=== PATIENT | male | born 1945 | race Caucasian/White ===

== ENCOUNTER 2017-08-13 05:12 | Emergency (ER) | payer MEDICARE, SELFPAY ==
[2017-08-13 05:18] VITALS: BP 136/76; PULSE 105; RESP 18; TEMP 37.1; O2SAT 96
--- NOTE | 2017-08-13 05:31 | DI.RAD.S_ITS ---
PROCEDURE: XR CHEST 1V INDICATIONS: chest pain TECHNIQUE: One view of the chest was acquired. COMPARISON: [facility], , CHEST 2 VIEW, 01/04/2017, 15:57. FINDINGS: Surgical changes and devices: None. Lungs and pleura: No pleural effusions or pneumothorax. Mild patchy bilateral perihilar and right basilar opacity. Mediastinum: Mediastinal contours appear normal. Heart size is normal. Bones and chest wall: No suspicious bony lesions. Overlying soft tissues appear unremarkable. IMPRESSION: Bilateral pneumonia. Dictated by: Tiffani Rich M.D. on 08/13/2017 at 9:28 Approved by: Tiffani Rich M.D. on 08/13/2017 at 9:29
[2017-08-13] MEDS: HALOPERIDOL 5 MG/ML VIAL 2 MG IV (05:41)
[2017-08-13] MEDS: LORazepam 0.5 MG TABLET PO (05:41)
[2017-08-13 05:50] LABS: Add Manual Diff / Slide Review SLIDE REVIEW; Basophils Percent Auto 1.3 % (0-2); Eosinophils Percent Auto 2.5 % (2-4); Hematocrit 31.9 % (41-53); Hemoglobin 10.3 g/dL (13.5-17.5); Lymphocytes Percent Auto 16.8 % (25-40); Mean Corpuscular HGB Conc 32.4 % (30-36); Mean Corpuscular Hemoglobin 22.7 PG (26-34); Mean Corpuscular Volume 70.2 fL (80-100); Neutrophils Absolute Auto 4500 /uL (3000-5900); Neutrophils Percent Auto 62.4 % (50-75); Platelet Count 240 X10^3/uL (150-400); Red Blood Cell Count 4.54 X10^6/uL (4.5-5.9); White Blood Cell Count 7.2 X10^3/uL (4.5-11.0)
[2017-08-13 06:00] LABS: Alanine Aminotransferase 38 IU/L (21-72); Albumin 3.3 g/dL (3.5-5.0); Albumin Globulin Ratio 1.1 (1.0-2.8); Alkaline Phosphatase 77 U/L (38-126); Aspartate Aminotransferase 43 IU/L (17-59); BUN Creatinine Ratio 27.9 (6-22); Bilirubin Total 0.7 mg/dL (0.2-1.3); Blood Urea Nitrogen 53 mg/dL (9-20); Calcium 8.6 mg/dL (8.4-10.2); Carbon Dioxide 23 mmol/L (22-32); Chloride 95 mmol/L (98-107); Glucose 175 mg/dL (80-110); HEMOLYSIS 29 (0-50); Lipase 92 U/L (23-300); Potassium 4.1 mmol/L (3.4-5.1); Sodium 131 mmol/L (137-145); Total Protein 6.3 g/dL (6.3-8.2)
[2017-08-13 06:16] LABS: Anisocytosis 2+; Hypochromasia 1+; Microcytosis 2+
[2017-08-13 06:41] VITALS: BP 99/68; PULSE 105; RESP 18
[2017-08-13 06:44] VITALS: BP 107/77
--- NOTE | 2017-08-13 06:55 | ED_ITS ---
HPI - Chest Pain General Chief Complaint: Chest Pain Stated Complaint: CHEST PAIN Time Seen by Provider: 08/13/17 05:18 History of Present Illness HPI narrative: HPI 72-year-old male with hep C, cirrhosis, and ascites presents for evaluation of one hour of nonradiating poorly characterized burning substernal chest pain that is without identifiable provoking or relieving factors. Patient notes his discharge yesterday from [facility] where he is being treated for renal insufficiency (reportedly stable) and ascites, has pending outpatient follow- up. Patient is not filled his prescription for visceral to treat anxiety as it does not work. Patient denies recent immobilization, leg trauma, estrogen use , surgery in the last four weeks, hemoptysis, or malignancy in the last 6 months. M/S/F/SocHx notable for: please see HPI; remainder reviewed with patient and in chart. ROS: Negative constitutional, eye, cardiovascular, pulmonary, GI, , MSK, skin , neurologic, psychiatric, endocrine unless noted in the HPI. Exam Gen: Pleasant, non-toxic appearing, resting comfortably. HEENT: NC, AT, PEERL, EOMI. Resp: Clear to auscultation bilaterally, normal work of breathing. Card: RRR with no M/R/G, no crackles in lung bases, no pedal edema, no JVD appreciated. GI: NT/ND Vascular: Both ankles, calves, and thighs of equal size, no calf tenderness to palpation bilaterally. MSK: No chest wall TTP. No visible deformities, strength and tone WNL. Skin: Normal color with no visible lesions. Neuro: AO x 3, no facial asymmetry, vision and hearing WNL. Psych: Mood and affect appropriate. Labs / Imaging (pertinent): WBC 7.2, Hb 10.3, Na 131, K 4.1. Troponin 0.040 total bilirubin 0.7, AST 43, ALT 30, ALP 77, lipase 92. EKG: SR 106 bpm, no ST segment elevations or depressions, LBBB. CXR: No acute cardiopulmonary disease process. Radiologist read pending. MDM Previous chart, nursing note, and vitals reviewed. A: 72-year-old male with hep C, cirrhosis, and ascites presents for evaluation of one hour of nonradiating poorly characterized burning substernal chest pain that is without identifiable provoking or relieving factors. DDx and Evaluation: * ACS - doubt ACS given a non-ischemic EKG and initial negative troponin, however patient has a pending repeat troponin. . * UA - unlikely given the atypical history and alternate diagnosis. HEART score 4 (Hx - 0, EKG - 1, age - 2, risk factors - 1, troponin - 0; 30 day MACE: 12 to 16.6%); while elevated all the risk factors are present at baseline. * Pericarditis - consider pericarditis unlikely given the lack of PA segment depressions as well as the absence of diffuse ST-segment elevations, lack of reduction of pain when supine, and lack of a friction rub. * Myocarditis - unlikely given the negative troponin and an EKG without characteristic PA-segment or ST-segment changes. * Dissection - dissection is unlikely given symptoms, and lack of mediastinal widening. * PE - low clinical suspicion given history and alternate diagnosis, further risk stratification (e.g.) Well's not indicated. * Mediastinal Air - no evidence by CXR or auscultation. * Pneumothorax - no evidence by CXR or physical exam. * MSK - doubt given lack of reproducibility on exam. * Endocarditis - no identifiable risk factors, patient afebrile, no new murmurs appreciated on exam; doubt. * GI (Esophageal rupture, GERD) - esophageal rupture effectively excluded given the lack of mediastinal widening, non-toxic appearance, and lack of identifiable risk factors. While not definitively excluded, further evaluation of GERD is deferred to an outpatient setting. ED Course: patient care transferred to Dr. Saavedra, the oncoming daytime provider pending repeat troponin 7:40 AM and repeat evaluation in disposition as appropriate. Impression: Chest Pain. (please reference below for remainder of encounter information) Related Data Home Medications Medication Instructions Recorded Confirmed lactulose 10 gm PO TID #0 03/04/17 pantoprazole [Protonix] 40 mg PO BID #0 03/04/17 ondansetron 4 mg SUBLINGUAL Q4HP PRN #0 03/10/17 Allergies Allergy/AdvReac Type Severity Reaction Status Date / Time No Known Allergies Allergy Uncoded 06/07/17 12:48 Exam Initial Vital Signs Initial Vital Signs: Vital Signs Temperature 98.8 F 08/13/17 05:18 Pulse Rate 105 H 08/13/17 05:18 Respiratory Rate 18 08/13/17 05:18 Blood Pressure 136/76 H 08/13/17 05:18 Pulse Oximetry 96 08/13/17 05:18 Course Orders Ordered: ED Orders 08/13/17 EKG-12 Lead Routine 08/13/17 05:31 XR chest 1V Stat 08/13/17 05:40 Complete Blood Count AUTO DIFF Stat Comprehensive Metabolic Panel Stat Lipase Stat Troponin I Stat Discontinued Medications Haloperidol (Haldol) 2 mg IV NOW ONE Stop: 08/13/17 05:32 Last Admin: 08/13/17 05:41 Dose: 2 mg Lorazepam (Ativan) 0.5 mg PO NOW ONE Stop: 08/13/17 05:32 Last Admin: 08/13/17 05:41 Dose: 0.5 mg Vital Signs - 8 hr 08/13/17 05:18 08/13/17 06:41 08/13/17 06:44 Temperature 98.8 F Pulse Rate 105 H 105 H Respiratory Rate 18 18 Blood Pressure 136/76 H Blood Pressure [Left Arm] 99/68 107/77 Pulse Oximetry 96 MDM - Chest Pain Lab Data Result diagrams: 08/13/17 05:40 08/13/17 05:40 Lab Results 08/13/17 08/13/17 Range/Units 05:40 05:40 WBC 7.2 (4.5-11.0) X10^3/uL RBC 4.54 (4.5-5.9) X10^6/uL Hgb 10.3 L (13.5-17.5) g/dL Hct 31.9 L (41-53) % MCV 70.2 L (80-100) fL MCH 22.7 L (26-34) PG MCHC 32.4 (30-36) % RDW 20.0 H (11.6-14.8) % Plt Count 240 (150-400) X10^3/uL Neut % (Auto) 62.4 (50-75) % Lymph % (Auto) 16.8 L (25-40) % [place] % (Auto) 17.0 H (3-14) % Eos % (Auto) 2.5 (2-4) % Baso % (Auto) 1.3 (0-2) % Neut # (Auto) 4500 (0885-4118) /uL RBC Morphology Not Reportable Hypochromasia 1+ H Anisocytosis 2+ H Microcytosis 2+ H Sodium 131 L (137-145) mmol/L Potassium 4.1 (3.4-5.1) mmol/L Chloride 95 L (98-107) mmol/L Carbon Dioxide 23 (22-32) mmol/L BUN 53 H (9-20) mg/dL Creatinine 1.90 H (0.66-1.25) mg/dL Estimated GFR 35.0 L (>60) mL/min BUN/Creatinine Ratio 27.9 H (6-22) Glucose 175 H (80-110) mg/dL Calcium 8.6 (8.4-10.2) mg/dL Total Bilirubin 0.7 (0.2-1.3) mg/dL AST 43 (17-59) IU/L ALT 38 (21-72) IU/L Alkaline Phosphatase 77 (38-126) U/L Troponin I 0.040 H (0.01-0.034) ng/mL Total Protein 6.3 (6.3-8.2) g/dL Albumin 3.3 L (3.5-5.0) g/dL Globulin 3.0 (1.7-4.1) g/dL Albumin/Globulin Ratio 1.1 (1.0-2.8) Lipase 92 (23-300) U/L Discharge Plan Departure Prescriptions: No Action pantoprazole [Protonix] 40 MG tablet,delayed release (DR/EC) 40 mg PO BID Qty: 0 RF: 0 lactulose 10 GM/15 ML solution 10 gm PO TID Qty: 0 RF: 0 ondansetron 4 MG tablet,disintegrating 4 mg Sublingual Q4HP PRNQty: 0 RF: 0
--- NOTE | 2017-08-13 07:40 | PC.NURSE ---
Late Entry-pt quiet and resting after medicated with the ativan and haldol.
[2017-08-13 07:48] VITALS: BP 111/72; PULSE 98; RESP 16; O2SAT 97
[2017-08-13 08:00] VITALS: BP 114/61; PULSE 96; RESP 16; O2SAT 99
[2017-08-13 09:02] LABS: Troponin I 0.033 ng/mL (0.01-0.034)
[2017-08-13 09:24] VITALS: BP 112/63; PULSE 95; RESP 18; O2SAT 98
== END 2017-08-13 09:33 | disposition home or self-care (01) ==
PROVIDERS: Emergency Medicine; Emergency Provider Emergency Medicine
DX: R07.89 Other chest pain (principal)
CPT/HCPCS: 36415; 36591; 71045; 80053; 83690; 84484; 85025; 93005; 93041; 96374; 99283; 99285; J1630